=== PATIENT | male | born 1980 | race Caucasian/White ===

== ENCOUNTER 2024-09-01 18:53 | Emergency (ER) | payer BC ==
[2024-09-01] MEDS ORDERED: Sodium Chloride 0.9% 10 ML Syringe FLUSH PRN (18:56)
[2024-09-01 19:08] LABS: BASOPHILS ABSOLUTE AUTO 0.04 K/uL (0.00-0.20); BASOPHILS PERCENT AUTO 0.4 % (0.0-2.0); EOSINOPHILS ABSOLUTE AUTO 0.21 K/uL (0.00-0.50); HEMATOCRIT 43.4 % (39.0-49.0); IMMATURE GRAN ABSOLUTE AUTO 0.04 10^3/uL (0.00-0.04); IMMATURE GRAN PERCENT AUTO 0.4 % (0.0-0.4); LYMPHOCYTES ABSOLUTE AUTO 2.42 K/uL (0.50-3.50); LYMPHOCYTES PERCENT AUTO 22.5 % (10.0-50.0); MEAN CORPUSCULAR HEMOGLOBIN 28.5 pg (28.2-33.3); MEAN CORPUSCULAR HGB CONC 34.6 g/dL (31.7-36.0); MEAN CORPUSCULAR VOLUME 82.5 fL (84.0-98.0); MONOCYTES ABSOLUTE AUTO 0.71 K/uL (0.00-1.00); MONOCYTES PERCENT AUTO 6.6 % (2.0-14.0); NEUTROPHILS ABSOLUTE AUTO 7.32 K/uL (1.40-7.00); NEUTROPHILS PERCENT AUTO 68.1 % (45.0-80.0); PLATELET COUNT,PLT 274 K/uL (150-350); RED BLOOD CELL COUNT 5.26 M/uL (4.33-5.41); RED CELL DISTRIBUTION WIDTH 11.7 % (11.2-14.1); WHITE BLOOD CELL COUNT,WBC 10.7 K/uL (4.0-10.2)
[2024-09-01 19:39] LABS: ALANINE AMINOTRANSFERASE,ALT 30 U/L (12-78); ALKALINE PHOSPHATASE 114 IU/L (46-116); ANION GAP 9.7 meq/L (7-15); ASPARTATE AMNIOTRANSFERASE,AST 18 U/L (15-37); BILIRUBIN TOTAL 0.7 mg/dL (0.2-1.0); CARBON DIOXIDE,CO2 27.3 mmol/L (21.0-32.0); CHLORIDE,CL 104 mmol/L (98-107); GLUCOSE RANDOM 97 mg/dL (70-99); MAGNESIUM 2.3 mg/dL (1.8-2.4); POTASSIUM,K 4.5 mmol/L (3.5-5.1); PRO B-TYPE NATRIUR PEPT,BNPPRO 7 pg/mL (0-125); PROTEIN TOTAL,TP 7.6 g/dL (6.4-8.2); SODIUM,NA 141 mmol/L (136-145)
[2024-09-01 19:52] LABS: BLOOD UREA NITROGEN,BUN 19 mg/dL (7-18); CREATININE 1.21 mg/dL (0.51-1.17)
[2024-09-01 19:53] LABS: ALBUMIN 4.1 g/dL (3.4-5.0); CALCIUM 8.9 mg/dL (8.5-10.1); ESTIMATED GFR 77 mL/min (>=60)
== END 2024-09-01 21:05 | disposition home or self-care (01) ==
LOC: LL.ED 18:53
DX: R07.89 Other chest pain (principal); I10 Essential (primary) hypertension; Z79.899 Other long term (current) drug therapy
CPT/HCPCS: 36415; 71046; 80053; 83605; 83735; 83880; 84484; 85025; 85379; 87428-QW; 93005; 99285

== ENCOUNTER 2025-01-14 20:20 | Emergency (ER) | payer SELFPAY ==
[2025-01-14] MEDS ORDERED: Sodium Chloride 0.9% 10 ML Syringe FLUSH PRN (20:49)
[2025-01-14 20:54] LABS: BASOPHILS ABSOLUTE AUTO 0.02 K/uL (0.00-0.20); BASOPHILS PERCENT AUTO 0.2 % (0.0-2.0); EOSINOPHILS ABSOLUTE AUTO 0.00 K/uL (0.00-0.50); EOSINOPHILS PERCENT AUTO 0.0 % (0.0-5.0); IMMATURE GRAN ABSOLUTE AUTO 0.05 10^3/uL (0.00-0.04); IMMATURE GRAN PERCENT AUTO 0.4 % (0.0-0.4); LYMPHOCYTES ABSOLUTE AUTO 0.95 K/uL (0.50-3.50); LYMPHOCYTES PERCENT AUTO 7.2 % (10.0-50.0); MONOCYTES ABSOLUTE AUTO 0.69 K/uL (0.00-1.00); MONOCYTES PERCENT AUTO 5.3 % (2.0-14.0); NEUTROPHILS ABSOLUTE AUTO 11.40 K/uL (1.40-7.00); NEUTROPHILS PERCENT AUTO 86.9 % (45.0-80.0); PLATELET COUNT,PLT 207 K/uL (150-350); RED BLOOD CELL COUNT 5.10 M/uL (4.33-5.41); RED CELL DISTRIBUTION WIDTH 11.8 % (11.2-14.1); WHITE BLOOD CELL COUNT,WBC 13.1 K/uL (4.0-10.2)
[2025-01-14] MEDS: Ondansetron 4 MG/2 ML SDV IVPUSH ONE (20:55)
[2025-01-14] MEDS: Ketorolac 15 MG/ML SDV IVPUSH ONE (20:55)
[2025-01-14 21:18] LABS: ALANINE AMINOTRANSFERASE,ALT 57 U/L (12-78); ASPARTATE AMNIOTRANSFERASE,AST 33 U/L (15-37); BILIRUBIN TOTAL 0.6 mg/dL (0.2-1.0); BLOOD UREA NITROGEN,BUN 15 mg/dL (7-18); CARBON DIOXIDE,CO2 25.8 mmol/L (21.0-32.0); CHLORIDE,CL 100 mmol/L (98-107); CREATININE 1.33 mg/dL (0.51-1.17); GLUCOSE RANDOM 118 mg/dL (70-99); POTASSIUM,K 3.8 mmol/L (3.5-5.1); PROTEIN TOTAL,TP 7.8 g/dL (6.4-8.2); SODIUM,NA 136 mmol/L (136-145)
[2025-01-14 21:19] LABS: ESTIMATED GFR 68 mL/min (>=60)
[2025-01-14] MEDS: Potassium Chloride 20 MEQ Tab.ER PO ONE ×2 (22:05→23:25)
[2025-01-14] MEDS: Take Home: Ondansetron 4 MG Tab.DIS, 5 Tab Pack PO ONE (22:25)
[2025-01-14] MEDS: Take Home: traMADol 50 MG, 4 Tab Pack PO ONE (22:25)
[2025-01-14] MEDS: Take Home: Ketorolac 10 MG Tab, 4 Tab Pack PO ONE (22:25)
[2025-01-14 23:38] LABS: APPEARANCE,URINE CLEAR; GLUCOSE,URINE NEGATIVE (NEGATIVE); OCCULT BLOOD,URINE NEGATIVE (NEGATIVE)
== END 2025-01-14 23:30 | disposition home or self-care (01) ==
LOC: LL.ED 20:20
DX: E86.0 Dehydration (principal); I10 Essential (primary) hypertension; K21.9 Gastro-esophageal reflux disease without esophagitis; Z79.899 Other long term (current) drug therapy
CPT/HCPCS: 36415; 80053; 81003; 83605; 83735; 85025; 87426-QW; 87651; 96361; 96374; 96375; 99284; 99284-25; A9270-GY; J1885; J2405; J7030; Q0162